=== PATIENT | female | born 1990 | race Caucasian/White ===

== ENCOUNTER 2017-12-05 10:00 | Emergency (ER) | payer SELFPAY ==
[~2017-12-05] VITALS: Ht 147.3 cm; Wt 58.1 kg
[2017-12-05 10:11] VITALS: BP 159/98
--- NOTE | 2017-12-05 10:17 | NUR ---
PT AMBULATED TO ER BED 04
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
[2017-12-05] MEDS ORDERED: KETOROLAC 60 MG/2 ML VIAL IM ONE (10:55)
[2017-12-05] MEDS ORDERED: oxyCODONE/APAP 5/325 MG 1 TAB TAB PO ONE (10:55)
--- NOTE | 2017-12-05 11:20 | NUR ---
Pt taken to CT accompanied by electronic service technician.
--- NOTE | 2017-12-05 11:42 | NUR ---
pt returned from ct via w/c accompanied by transporter radiology
--- NOTE | 2017-12-05 12:54 | NUR ---
Pt resting in gurney with eyes closed. No complaints at this time. Will continue to monitor.
[2017-12-05 13:11] VITALS: BP 134/68
--- NOTE | 2017-12-05 13:11 | NUR ---
Patient discharged with v/s stable. Written and verbal after care instructions given and explained. Patient alert, oriented and verbalized understanding of instructions. Ambulatory with steady gait. All questions addressed prior to discharge. ID band removed. Patient advised to follow up with PMD. Rx of ibuprofen 600 mg and Solsberry 5-325mg tablets given. Patient educated on indication of medication including possible reaction and side effects. Opportunity to ask questions provided and answered.
== END 2017-12-05 13:11 | disposition home or self-care (01) ==
LOC: MED 10:00
DX: S60.221A Contusion of right hand, initial encounter (principal); S20.211A Contusion of right front wall of thorax, initial encounter; V43.52XA Car driver injured in collision with other type car in traffic accident, initial encounter; Y93.I9 Activity, other involving external motion; Y92.89 Other specified places as the place of occurrence of the external cause; Y99.8 Other external cause status
CPT/HCPCS: 71101; 73130; 74176; 81025; 96372; 99284; J1885

== ENCOUNTER 2018-06-07 20:43 | Emergency (ER) | payer SELFPAY ==
[~2018-06-07] VITALS: Ht 147.3 cm; Wt 328.9 kg
[2018-06-07 20:55] VITALS: BP 139/98
[2018-06-07] MEDS: KETOROLAC 60 MG/2 ML VIAL IM ONE (23:03)
[2018-06-07 23:35] VITALS: BP 132/95
== END 2018-06-07 23:35 | disposition home or self-care (01) ==
LOC: MED 20:43
DX: S82.64XA Nondisplaced fracture of lateral malleolus of right fibula, initial encounter for closed fracture (principal); X50.1XXA Overexertion from prolonged static or awkward postures, initial encounter; Y93.61 Activity, american tackle football; Y99.8 Other external cause status
CPT/HCPCS: 29515; 73610; 96372; 99284; J1885